=== PATIENT | male | born 1960 | race Caucasian/White ===

== ENCOUNTER 2023-12-29 07:20 | Emergency (ER) | payer MEDICAID, SELFPAY ==
[2023-12-29] VITALS (15 sets, daily range): BP systolic 104–157; BP diastolic 81–99; PULSE 71–103; RESP 15–25; O2SAT 94–100
--- NOTE | 2023-12-29 07:15 | RT.EKG_ITS ---
APPROVED REPORT Exam: Resting ECG Reason for Exam: chest pain Patient Location: E HR:81 bpm ECG Measurements Heart Rate 81 AXIS AL 213 P 58 QRSd 93 QRS -42 QT 381 T 53 QTc 443 Conclusion Sinus rhythm...normal P axis, V-rate 60- 99 Borderline prolonged AL interval...AL >212, V-rate 50- 90 Left axis deviation...QRS axis (-30,-90) Anterior infarct, acute...ST >0.25mV, V2-V5 Physician: STEMI
[2023-12-29] MEDS: nitroGLYcerin 0.4 MG TAB SL ×3 (07:31→07:48)
[2023-12-29] MEDS: Aspirin 81 MG CHEW 324 MG CH (07:31)
[2023-12-29] MEDS: Clopidogrel 300 MG TAB PO (07:31)
[2023-12-29] MEDS: MORPHine 4 MG/ML SYR IVP (07:32)
[2023-12-29] MEDS: Ondansetron 4 MG/2 ML VIAL (07:38)
--- NOTE | 2023-12-29 07:40 | ED.GENADUL_ITS ---
Discharge Plan Disposition Patient Disposition: Transfer-Acute Inpatient Care Specific Acute Inpt Facility: [facility] Condition: Critical Discharge Details Chief Complaint: Chest Pain Clinical Impression: ST elevation CT (STEMI) Primary Care Provider: Taniya Curry ED Provider: Eugene Weinberg Home Meds and New Rx's Prescriptions: No Action loratadine [Allergy Relief (loratadine)] 10 mg tablet 10 mg PO DAILY Discharge Data Discharge Date/Time-TO BE ENTERED AT DEPARTURE: 12/29/23 08:22 HPI General Date/Time Provider Initiated Documentation: 12/29/23 07:28 . HPI Narrative: 63-year-old male with a past medical history of irritable bowel syndrome, and a strong family history of myocardial infarctions presents today for evaluation of chest pain. He states that for the last 2 days he has had achiness in his chest whenever he gets up and does activity. It gets better when he rests, however this morning when he awoke it was extremely painful for the last 2 hours. He describes it as a person sitting on his chest. It is right on his sternum and xiphoid process area. He has never had symptoms like this before. He denies any history of heart attack stroke bleed or recent surgery. He denies any arm tingling. He denies any falls or trauma. No other complaints at this time. He has not smoked in the past. Related Data Home Medications ?Medication ?Instructions ?Recorded ?Confirmed loratadine 10 mg tablet (Allergy 10 mg PO DAILY 12/29/23 12/29/23 Relief (loratadine)) Allergies Allergy/AdvReac Type Severity Reaction Status Date / Time ciprofloxacin Allergy Severe Unknown Verified 12/29/23 07:44 metronidazole Allergy Intermediate Unknown Verified 12/29/23 07:44 Sulfa (Sulfonamide Allergy Intermediate Unknown Verified 12/29/23 07:44 Antibiotics) General Stated Complaint: Chest Pain RALF: 2 Review of Systems All systems reviewed & are unremarkable except as noted in HPI and below Exam Narrative Exam Narrative: 1.Const: Well-nourished, Well-developed, appearing stated age 2.Eyes: PERRL, no conjunctival injection, and symmetrical lids. 3.ENT: Atraumatic external nose and ears. Moist MM. Neck: Symmetric, trachea midline, No thyromegaly. 4.CVS: +S1/S2, No murmurs or gallops. Peripheral pulses 2+ and equal in all extremities. Brisk capillary refill in all extremities. Reproducible pain on palpation of the xiphoid process and sternum. 5.RESP: Unlabored respiratory effort. Clear to auscultation bilaterally. No wheezes rales or rhonchi 6.GI: Soft, Nontender/Nondistended, No hepatosplenomegaly. No guarding or rebound. 7.MSK: Normocephalic/Atraumatic, Extremities w/o deformity or ttp No cyanosis or clubbing, Normal movement of all extremities 8.Skin: Warm, Dry. No rashes or lesions. 9.Neuro: actimize architect II-XII grossly intact. Sensation grossly intact, no focal neurologic deficits. 10.Psych: (AAO) x3. Appropriate mood and affect Course Vital Signs Vital signs: Vital Signs Pulse Oximetry 100 12/29/23 07:24 Pulse 87 12/29/23 07:25 Pulse 73 12/29/23 07:30 Respiratory Rate 20 12/29/23 07:30 Blood Pressure 157/99 H 12/29/23 07:25 Blood Pressure Mean 116 12/29/23 07:25 Blood Pressure Position Sitting 12/29/23 07:25 Pulse Oximetry 100 12/29/23 07:30 Oxygen Delivery Method Room Air 12/29/23 07:25 Oxygen Flow Rate 0 12/29/23 07:25 Pain Level 10 12/29/23 07:32 Medical Decision Making 63-year-old male with a past medical history of irritable bowel syndrome, and a strong family history of myocardial infarctions presents today for evaluation of chest pain. He states that for the last 2 days he has had achiness in his chest whenever he gets up and does activity. It gets better when he rests, however this morning when he awoke it was extremely painful for the last 2 hours. He describes it as a person sitting on his chest. It is right on his sternum and xiphoid process area. He has never had symptoms like this before. He denies any history of heart attack stroke bleed or recent surgery. He denies any arm tingling. He denies any falls or trauma. No other complaints at this time. He has not smoked in the past. Patient is pale, mildly diaphoretic. Actively in pain. Radial pulses are +2 bilaterally. EKG shows evidence of anterior STEMI. We will administer 300 mg of Plavix, 325 aspirin, nitroglycerin, morphine for pain control, and TNK. Will reach out to [facility] and request transfer. Symptoms do not appear consistent with dissection. No ripping or tearing. Radial pulses equal. No evidence of pneumothorax. 8 AM Discussed the case with cardiology Dr. Yana Sullivan, he agrees with the assessment and plan and recommends immediate transfer. Patient will be transferred and admitted under Dr. Torres. [facility]ART is not currently flying, patient will be transferred via [place]. We will send one of our nurses to assist in this transfer. Patient has been started on heparin with a bolus and infusion as recommended by [facility] cardiology. Patient's blood pressure came down to 104 systolic. We have decided to hold off on administration of nitroglycerin drip. Patient states that he is feeling much better/improved at this time. Pain is still present but much more mild. Patient will be emergently transferred. Laboratory workup shows troponin of 2283. proBNP is high at 1159. I have exten sively reviewed the treatment plan with the patient. I have addressed all patient concerns at this time. I have also discussed the plan with the admitting physician and they agree with the current assessment and plan and have agreed to assume responsibility for the patient. All parties demonstrate verbal understanding and agreement with our assessment and plan at this time. The documentation in this chart was dictated using [employer] dictation software. Please excuse any dictation errors. At time of transfer the patient was reassessed and continued to demonstrate No signs of acute respiratory distress requiring intubation, hemodynamic instability requiring pressor support, or rapidly declining mental status. FINDINGS: Lungs: No focal consolidation. Pleural spaces: No significant pleural fluid. No pneumothorax detected. Heart/Mediastinum: Heart size within normal range. No pulmonary vascular congestion. Bones/joints: No obvious acute abnormality. IMPRESSION: No acute cardiopulmonary abnormality detected on AP portable chest radiograph. Thank you for allowing us to participate in the care of your patient. Dictated and Authenticated by: Nitin Bailon MD 12/29/2023 8:27 AM Eastern Time ([place] & [place]) Quality:SDOH Health Related Social Needs: No Data to Display Critical Care Time Critical Care Time Critical Care Time: Yes Total Critical Care Time: 45 Attestation: Upon my evaluation, this patient had a high probability of imminent or life- threatening deterioration, which required my direct attention, intervention, and personal management. I have personally provided 45 minutes of critical care time exclusive of time spent on separately billable procedures. Time includes review of laboratory data, radiology results, discussion with consultants, and monit oring for potential decompensation. Interventions were performed as documented. [facility] All Active Problems (Updated 12/29/23 @ 23:40 by Eugene Weinberg DO) ST elevation CT (STEMI) (Acute) Eyelid cyst (Acute) Medical History Lumbago with sciatica IBS (irritable bowel syndrome) Eyelid lesion Social History Smoking risk assessment performed?: No Alcohol Intake: never Drug use: Occasionally Substance use type: marijuana
--- NOTE | 2023-12-29 07:42 | DI.RAD_ITS ---
Exam(s) XR PORTABLE CHEST AP EXAM: XR PORTABLE CHEST AP CLINICAL HISTORY: stemi TECHNIQUE: 2D digital imaging was performed. COMPARISON: No exams were available for comparison FINDINGS: Exam limited by multiple overlying monitoring leads. LUNGS: Clear where visualized. No pleural abnormality seen. HEART: Normal size. AORTA: Normal diameter. BONES: Unremarkable for age. Soft tissues: Unremarkable. IMPRESSION: No acute findings. DATA REPOSITORY: RADIATION DOSE DELIVERED:
[2023-12-29 07:44] LABS: Abs Immature Grans 0.03 10^3/uL (0.0-0.06); Absolute Basophil Count 0.08 10^3/uL (0.0-0.2); Absolute Eosinophil Count 0.18 10^3/uL (0.0-0.7); Absolute Lymphocyte Count 2.86 10^3/uL (1.2-3.4); Absolute Monocyte Count 0.63 10^3/uL (0.1-0.8); Absolute Neutrophil Count 4.77 10^3/uL (1.2-6.7); Basophils % 0.9 %; Eosinophils % 2.1 %; HCT 47.7 % (40.0-50.0); HGB 16.7 g/dL (13.5-17.5); Immature Grans % 0.4 %; Lymphocytes % 33.5 %; MCV 91 fL (80-95); MPV 9.1 fL (8.0-11.0); Monocytes % 7.4 %; Neutrophils % 55.7 %; Platelet Count 295 10^3/uL (130-400); RBC 5.22 10^6/uL (4.36-5.78); RDW 11.9 % (11.8-14.1); RDW-SD 39.8 fL; WBC 8.55 10^3/uL (4.4-10.8)
[2023-12-29] MEDS: Tenecteplase 50 MG KIT IVP (07:46)
[2023-12-29 08:00] LABS: Prothrombin Time 9.9 sec (9.1-11.1)
[2023-12-29] MEDS: Heparin in 0.45% NaCl 25,000 UNIT/250 ML BAG 10 UNIT IV (08:01)
[2023-12-29] MEDS: Metoprolol 25 MG TAB PO (08:01)
[2023-12-29] MEDS: Atorvastatin 10 MG TAB PO (08:01)
[2023-12-29 08:09] LABS: ALT 30 U/L (16-63); AST 44 U/L (15-37); Albumin 4.1 g/dL (3.4-5.0); Alkaline Phosphatase 78 U/L (46-116); Anion Gap 15.4 mmol/L (3-11); BUN 14 mg/dL (7-18); Bilirubin, Total 0.96 mg/dL (0.2-1.0); CO2 19.6 mmol/L (21.0-32.0); CREATININE 1.4 mg/dL (0.70-1.30); Calcium 9.8 mg/dL (8.5-10.1); Chloride 101 mmol/L (98-107); Estimated GFR 56.13 (mL/min/1.73m2); Glucose 151 mg/dL (74-106); NT-proBNP 1159 pg/mL (<300); Potassium 3.8 mmol/L (3.5-5.1); Sodium 136 mmol/L (136-145); Total Protein 7.7 g/dL (6.4-8.2)
[2023-12-29 08:11] LABS: Troponin I 2283 ng/L (< or =60)
[2023-12-29] MEDS: MORPHine 4 MG/ML SYR (08:14)
--- NOTE | 2023-12-29 08:28 | DI.VRAD_ITS ---
PROCEDURE INFORMATION: Exam: XR Chest Exam date and time: 12/29/2023 7:38 AM Age: 63 years old Clinical indication: Myocardial infarct, STEMI TECHNIQUE: Imaging protocol: Radiologic exam of the chest. Views: 1 view. COMPARISON: No relevant prior studies available. FINDINGS: Lungs: No focal consolidation. Pleural spaces: No significant pleural fluid. No pneumothorax detected. Heart/Mediastinum: Heart size within normal range. No pulmonary vascular congestion. Bones/joints: No obvious acute abnormality. IMPRESSION: No acute cardiopulmonary abnormality detected on AP portable chest radiograph. Dictated and Authenticated by: Nitin Bailon MD. Ordering:VERNA Knight MD
--- NOTE | 2023-12-29 10:50 | NUR.NOTE ---
Nursing Note: This RN monitored the patient for the entirety of the transfer to [facility] with [facility], instrumentation engineering technician Joseph Jimenez as second ALS provider. No issues during [place]. Chest pain improved to 2/10. Vital signs remained stable for duration of transfer. Report given to laboratory miller MDs and RNs on arrival. See scanned transfer flowsheet for details.
== END 2023-12-29 08:22 | disposition short-term general hospital (02) ==
LOC: ER 08:25
PROVIDERS: Emergency Provider Student in an Organized Health Care Education/Training Program; PCP Nurse Practitioner Family
DX: R07.9 Chest pain, unspecified (principal); I21.4 Non-ST elevation (NSTEMI) myocardial infarction; R79.89 Other specified abnormal findings of blood chemistry; Z82.49 Family history of ischemic heart disease and other diseases of the circulatory system
CPT/HCPCS: 36415; 80053; 93005; 96374; 96375; 99285; 71045; 83880; 84484; 85025; 85610; 85730; 93010; J1644; J2270; J2405; J3101

== ENCOUNTER 2024-01-01 18:09 | Emergency (ER) | payer MEDICAID, SELFPAY ==
[2024-01-01] VITALS (30 sets, daily range): BP systolic 101–136; BP diastolic 57–91; PULSE 68–114; RESP 9–26; O2SAT 93–98
--- NOTE | 2024-01-01 18:00 | RT.EKG_ITS ---
APPROVED REPORT Exam: Resting ECG Reason for Exam: chest pain Patient Location: E HR:59 bpm ECG Measurements Heart Rate 59 AXIS AK 170 P 81 QRSd 180 QRS 33 QT 545 T 18 QTc 555 Conclusion Sinus rhythm...normal P axis, V-rate 60- 99 Ventricular premature complex...V complex w/ short R-R interval Right bundle branch block...QRSd>120, terminal axis(90,270) Inferior infarct, old...Q >35mS, II III aVF Anterolateral infarct, acute...ST >0.20mV, V2-V6,I,aVL
--- NOTE | 2024-01-01 18:00 | RT.EKG_ITS ---
APPROVED REPORT Exam: Resting ECG Reason for Exam: Chest Pain Patient Location: E HR:104 bpm ECG Measurements Heart Rate 104 AXIS MI 178 P 68 QRSd 79 QRS -56 QT 318 T 82 QTc 418 Conclusion Sinus tachycardia...rate> 99 Left anterior fascicular block...axis(240,-40), init forces inf Anterior infarct, old...Q >40mS, abnormal ST-T, V2-V5
--- NOTE | 2024-01-01 18:15 | DI.RAD_ITS ---
Exam(s) XR PORTABLE CHEST AP EXAM: XR PORTABLE CHEST AP CLINICAL HISTORY: chest pain TECHNIQUE: 2D digital imaging was performed. COMPARISON: CR,XR XR PORTABLE CHEST AP from 12/29/2023 FINDINGS: LUNGS: Clear. No pleural abnormality seen. HEART: Normal size. AORTA: Normal diameter. BONES: Unremarkable for age. Soft tissues: Unremarkable. IMPRESSION: No acute findings. DATA REPOSITORY: RADIATION DOSE DELIVERED:
--- NOTE | 2024-01-01 18:20 | ED.GENADUL_ITS ---
Discharge Plan Disposition Patient Disposition: Transfer-Acute Inpatient Care Specific Acute Inpt Facility: [facility] Condition: Serious Discharge Details Clinical Impression: Non-ST elevation UT (NSTEMI) Primary Care Provider: Taniya Curry ED Provider: Krystle Bernstein Home Meds and New Rx's Prescriptions: No Action loratadine [Allergy Relief (loratadine)] 10 mg tablet 10 mg PO DAILY Discharge Data Discharge Date/Time-TO BE ENTERED AT DEPARTURE: 01/01/24 21:14 HPI General Date/Time Provider Initiated Documentation: 01/01/24 18:20 . HPI Narrative: Victor Manuel is a 63-year-old male who presents to the emergency department today for evaluation of left-sided chest pressure. He was recently diagnosed with STEMI 12/27, had stent placement at [facility] yesterday and discharged today. Chest pressure came on while he was arguing with the data processing control clerk at [employer], he says he sat down and took 2 nitros with good improvement in symptoms, pain now rated 4 out of 10. Nitro drip was started by ambulance, pt had good improvement in symptoms. Denies associated dizziness, headache, vision changes, shortness of breath, nausea/vomiting, abdominal pain, pedal edema. He reports he has been taking medications as prescribed. Physical exam reassuring. Patient is alert and oriented, in no acute distress. Easy work of breathing, lung sounds clear bilaterally. Normal heart sounds. Abdomen soft, nondistended, nontender to palpation. Ecchymosis noted to the right lower quadrant, consistent with recent stent placement. No pedal edema. Skin is warm and dry to touch. Peripheral pulses intact bilaterally. DDx includes but is not limited to: ACS, angina, GERD, electrolyte imbalance, cardiac arrhythmia I independently interpreted the following tests: EKG remarkable for sinus tachycardia, no changes consistent with acute ischemia. Troponin very elevated at 15,580. CBC, CMP, magnesium all unremarkable. Chest x-ray reassuring, no acute abnormality noted. This was confirmed by radiologist. Patient initiated on heparin and given fentanyl for pain, as it persisted after third nitro. Pain has since resolved. History and presentation consistent with NSTEMI. Patient is resting comfortably at this time, vital signs stable on monitor. Heparin drip running per protocol. 1999: Discussed case with Dr. Brar, [facility] cardiology. Patient accepted to cardiology bed. He is agreeable with treatment plan, no changes recommended. Awaiting transportation. Related Data Home Medications ?Medication ?Instructions ?Recorded ?Confirmed loratadine 10 mg tablet (Allergy 10 mg PO DAILY 12/29/23 01/01/24 Relief (loratadine)) Allergies Allergy/AdvReac Type Severity Reaction Status Date / Time ciprofloxacin Allergy Severe Unknown Verified 12/29/23 07:44 metronidazole Allergy Intermediate Unknown Verified 12/29/23 07:44 Sulfa (Sulfonamide Allergy Intermediate Unknown Verified 12/29/23 07:44 Antibiotics) General Stated Complaint: Chest Pain RALF: 2 Review of Systems Narrative: see HPI Exam Const General: cooperative, healthy appearing, comfortable, no acute distress, well developed and well groomed Nutritional Appearance: average body habitus Resp Effort & Inspection: normal respiratory effort and able to speak in complete sentences Auscultation: clear to auscultation bilaterally Cardio Jugular venous pressure: no JVD Rhythm: regular rhythm Heart Sounds: S1 normal Pulses: radial pulses present GI Inspection: normal to inspection and non-distended Palpation: soft, not firm, no guarding and nontender Extrem General: normal to inspection and no pedal edema Course Vital Signs Vital signs: Vital Signs Pulse 101 H 01/01/24 18:12 Respiratory Rate 15 01/01/24 18:12 Blood Pressure 118/91 H 01/01/24 18:12 Pulse Oximetry 95 01/01/24 18:12 Pulse 101 H 01/01/24 18:12 Respiratory Rate 15 01/01/24 18:12 Blood Pressure 118/91 H 01/01/24 18:12 Blood Pressure Position Sitting 01/01/24 18:12 Pulse Oximetry 95 01/01/24 18:12 Oxygen Delivery Method Room Air 01/01/24 18:12 Oxygen Flow Rate 0 01/01/24 18:12 Pain Level 0 01/01/24 18:12 Medical Decision Making Quality:SDOH Health Related Social Needs: No Data to Display PFSH All Active Problems (Updated 01/01/24 @ 20:37 by Krystle Sanchez) Non-ST elevation UT (NSTEMI) (Acute) ST elevation UT (STEMI) (Acute) Eyelid cyst (Acute) Medical History Lumbago with sciatica IBS (irritable bowel syndrome) Eyelid lesion Social History Smoking/Tobacco Use Status: Current every day Smoking risk assessment performed?: Yes Alcohol Intake: never Drug use: Occasionally Substance use type: marijuana Do you feel safe at home: Yes Do you feel safe in your relationship?: Yes
[2024-01-01 18:27] LABS: Abs Immature Grans 0.03 10^3/uL (0.0-0.06); Absolute Basophil Count 0.07 10^3/uL (0.0-0.2); Absolute Eosinophil Count 0.08 10^3/uL (0.0-0.7); Absolute Lymphocyte Count 1.97 10^3/uL (1.2-3.4); Absolute Monocyte Count 0.43 10^3/uL (0.1-0.8); Absolute Neutrophil Count 4.47 10^3/uL (1.2-6.7); Eosinophils % 1.1 %; HCT 44.1 % (40.0-50.0); Immature Grans % 0.4 %; Lymphocytes % 27.9 %; MCV 94 fL (80-95); MPV 9.3 fL (8.0-11.0); Monocytes % 6.1 %; Neutrophils % 63.5 %; Platelet Count 289 10^3/uL (130-400); RBC 4.69 10^6/uL (4.36-5.78); RDW 11.9 % (11.8-14.1); RDW-SD 41.5 fL; WBC 7.05 10^3/uL (4.4-10.8)
[2024-01-01 18:43] LABS: PTT Activated 26.2 sec (23.6-32.8); Prothrombin Time 9.9 sec (9.1-11.1)
[2024-01-01 18:45] LABS: ALT 38 U/L (16-63); AST 56 U/L (15-37); Albumin 3.8 g/dL (3.4-5.0); Alkaline Phosphatase 75 U/L (46-116); Anion Gap 10.8 mmol/L (3-11); BUN 21 mg/dL (7-18); Bilirubin, Total 1.05 mg/dL (0.2-1.0); CO2 24.2 mmol/L (21.0-32.0); CREATININE 1.5 mg/dL (0.70-1.30); Calcium 9.5 mg/dL (8.5-10.1); Chloride 99 mmol/L (98-107); Estimated GFR 51.67 (mL/min/1.73m2); Glucose 133 mg/dL (74-106); Lipase 51 U/L (16-77); Magnesium 2.1 mg/dL (1.8-2.4); Potassium 4.3 mmol/L (3.5-5.1); Sodium 134 mmol/L (136-145); Total Protein 7.7 g/dL (6.4-8.2)
[2024-01-01 18:47] LABS: Troponin I 15580 ng/L (< or =60)
--- NOTE | 2024-01-01 19:15 | RT.EKG_ITS ---
APPROVED REPORT Exam: Resting ECG Reason for Exam: CP Patient Location: E HR:83 bpm ECG Measurements Heart Rate 83 AXIS SD 182 P 60 QRSd 82 QRS -59 QT 344 T 79 QTc 405 Conclusion Sinus rhythm...normal P axis, V-rate 60- 99 LAD, consider left anterior fascicular block...axis(240,-40), S>R II III aVF Probable anterior infarct, age indeterminate...Q >35mS, T neg, V2-V5
[2024-01-01] MEDS: fentaNYL 100 MCG/2 ML VIAL 50 MCG IVP (19:18)
[2024-01-01] MEDS: Heparin in 0.45% NaCl 25,000 UNIT/250 ML BAG 10 UNIT IV (19:18)
--- NOTE | 2024-01-01 19:18 | DI.VRAD_ITS ---
PROCEDURE INFORMATION: Exam: XR Chest Exam date and time: 01/01/2024 6:28 PM Age: 63 years old Clinical indication: Other: Unspecified; Patient HX: Chest pain TECHNIQUE: Imaging protocol: Radiologic exam of the chest. Views: 1 view. Other technique: Portable exam. COMPARISON: CR XR PORTABLE CHEST AP 12/29/2023 7:38 AM FINDINGS: Lungs: Unremarkable. No consolidation. Pleural spaces: Unremarkable. No pleural effusion. No pneumothorax. Heart/Mediastinum: Unremarkable. No cardiomegaly. Bones/joints: Unremarkable. IMPRESSION: No evidence for acute abnormality in the chest. Dictated and Authenticated by: Bertha Sevilla MD. Ordering:JESE Dalton MD
--- NOTE | 2024-01-08 08:19 | NUR.NOTE ---
Access chart to reconcile EKG orders to the EKGs in [facility]. Nursing Note:
--- NOTE | 2024-01-11 08:45 | NUR.NOTE ---
Addendum entered by Tanvi Caldwell 01/20/24 09:35: Access chart again to review EKG issues. Original Note: Access chart to reconcile EKG's. Nursing Note:
--- NOTE | 2024-01-11 11:06 | NUR.NOTE ---
Nursing Note:Accessing chart to review per Dr. Traore's request to investigate nursing documentation
--- NOTE | 2024-01-11 19:33 | NUR.NOTE ---
Nursing Note: Reviewed chart for clarification per request of ED management.
== END 2024-01-01 21:14 | disposition short-term general hospital (02) ==
PROVIDERS: Emergency Medicine; Emergency Provider Nurse Practitioner Family; PCP Nurse Practitioner Family
DX: I22.2 Subsequent non-ST elevation (NSTEMI) myocardial infarction (principal); I21.4 Non-ST elevation (NSTEMI) myocardial infarction; F17.210 Nicotine dependence, cigarettes, uncomplicated; Z95.5 Presence of coronary angioplasty implant and graft
CPT/HCPCS: 80053; 83690; 93005; 96374; 99285; 71045; 83735; 84484; 85025; 85610; 85730; 93010; J1644; J3010

== ENCOUNTER 2024-10-31 01:41 | Outpatient (REF) | payer MEDICARE, OTHER, SELFPAY ==
[2024-10-31 18:54] LABS: HCT 41.8 % (40.0-50.0); HGB 14.4 g/dL (13.5-17.5); MCH 32.7 pg (27.0-33.0); MCHC 34.4 % (32.0-36.0); MCV 95 fL (80-95); MPV 9.6 fL (8.0-11.0); Platelet Count 263 10^3/uL (130-400); RDW 11.9 % (11.8-14.1); RDW-SD 41.3 fL; WBC 6.29 10^3/uL (4.4-10.8)
[2024-10-31 20:01] LABS: ALT 42 U/L (16-63); AST 18 U/L (15-37); Albumin 4.2 g/dL (3.4-5.0); Alkaline Phosphatase 88 U/L (46-116); Anion Gap 7.7 mmol/L (3-11); BUN 20 mg/dL (7-18); Bilirubin, Total 1.1 mg/dL (0.2-1.0); CO2 26.3 mmol/L (21.0-32.0); CREATININE 1.4 mg/dL (0.70-1.30); Calculated LDL 59 mg/dL (<100); Chloride 104 mmol/L (98-107); Cholesterol 153 mg/dL (<200); Estimated GFR 55.78 (mL/min/1.73m2); Ferritin 209 ng/mL (26-388); Glucose 104 mg/dL (74-106); HDL Cholesterol 48 mg/dL (>or=40); Potassium 4.3 mmol/L (3.5-5.1); Sodium 138 mmol/L (136-145); Total Protein 7.1 g/dL (6.4-8.2); Triglyceride 231 mg/dL (<150)
== END 2024-10-31 01:42 | disposition home or self-care (01) ==
LOC: NCHCN 01:41
PROVIDERS: Visit Provider Family Medicine
DX: I24.0 Acute coronary thrombosis not resulting in myocardial infarction (principal); G47.00 Insomnia, unspecified
CPT/HCPCS: 80053; 80061; 85027; 82728